=== PATIENT | female | born 1985 | race African-American/Black ===

== ENCOUNTER 2017-12-11 17:54 | Emergency (ER) | payer MEDICAID ==
[~2017-12-11] VITALS: Ht 170.2 cm; Wt 118.0 kg
[2017-12-11 18:31] VITALS: BP 164/84
== END 2017-12-11 19:10 | disposition home or self-care (01) ==
LOC: ER 17:54
DX: H60.8X1 Other otitis externa, right ear (principal); E11.9 Type 2 diabetes mellitus without complications
CPT/HCPCS: 99283

== ENCOUNTER 2017-12-13 10:10 | Emergency (ER) | payer MEDICAID ==
[~2017-12-13] VITALS: Ht 170.2 cm; Wt 118.0 kg
[2017-12-13 13:14] VITALS: BP 160/58
== END 2017-12-13 13:16 | disposition home or self-care (01) ==
LOC: ER 10:57
DX: H60.91 Unspecified otitis externa, right ear (principal); R59.1 Generalized enlarged lymph nodes; E11.9 Type 2 diabetes mellitus without complications
CPT/HCPCS: 99283

== ENCOUNTER 2019-01-14 04:56 | Emergency (ER) | payer MEDICAID ==
[~2019-01-14] VITALS: Ht 167.6 cm; Wt 119.0 kg
[2019-01-14] MEDS ORDERED: HYDROCODONE/ACETAMINOPHEN 5/325MG TABLET PO ONE (05:15)
[2019-01-14] MEDS ORDERED: METHOCARBAMOL 500MG TABLET PO ONE (05:15)
[2019-01-14] MEDS ORDERED: MORPHINE SULFATE 4 MG/ML CPJ (NOT FOR IM USE) IV ONE (06:00)
[2019-01-14] MEDS ORDERED: ONDANSETRON HCL 4MG/2ML INJ IV ONE ×2 (06:00→06:30)
[2019-01-14] MEDS ORDERED: PROPOFOL 200MG/20ML VIAL IV ONE (06:30)
[2019-01-14 08:20] VITALS: BP 150/91
== END 2019-01-14 08:37 | disposition home or self-care (01) ==
LOC: ER 05:09
DX: S43.005A Unspecified dislocation of left shoulder joint, initial encounter (principal); X58.XXXA Exposure to other specified factors, initial encounter; Y93.89 Activity, other specified; Y92.032 Bedroom in apartment as the place of occurrence of the external cause
CPT/HCPCS: 23650; 73030; 96374; 96375; 96376; 99152; 99285; J2270; J2405; J2704; Z7610